=== PATIENT | male | born 1965 | race Caucasian/White ===

== ENCOUNTER 2018-07-05 09:28 | Emergency (ER) | payer BC ==
[~2018-07-05] VITALS: Ht 172.7 cm; Wt 94.9 kg
[2018-07-05 09:42] VITALS: Ht 172.7 cm; Wt 94.9 kg
[2018-07-05 11:57] VITALS: BP 148/91
== END 2018-07-05 11:57 | disposition home or self-care (01) ==
LOC: ED 09:28
DX: S80.12XA Contusion of left lower leg, initial encounter (principal); W51.XXXA Accidental striking against or bumped into by another person, initial encounter; Y93.39 Activity, other involving climbing, rappelling and jumping off; Y92.89 Other specified places as the place of occurrence of the external cause; Y99.8 Other external cause status

== ENCOUNTER 2019-06-24 09:48 | Emergency (ER) | payer OTHER ==
[~2019-06-24] VITALS: Ht 172.7 cm; Wt 95.7 kg
[2019-06-24 09:54] VITALS: Ht 172.7 cm; Wt 95.7 kg
[2019-06-24 12:16] VITALS: BP 137/91
== END 2019-06-24 12:17 | disposition home or self-care (01) ==
LOC: ED 09:48
DX: S39.012A Strain of muscle, fascia and tendon of lower back, initial encounter (principal); K21.9 Gastro-esophageal reflux disease without esophagitis; Z98.890 Other specified postprocedural states; X50.0XXA Overexertion from strenuous movement or load, initial encounter; Y93.89 Activity, other specified; Y92.89 Other specified places as the place of occurrence of the external cause; Y99.0 Civilian activity done for income or pay
CPT/HCPCS: J1885